=== PATIENT | female | born 1995 | race Caucasian/White ===

== ENCOUNTER 2023-08-21 09:50 | Outpatient (CLI) | payer MEDICAID | END 2023-08-21 23:59 | disposition home or self-care (01) | LOC: RAD 09:50 | PROVIDERS: ATTEND Student in an Organized Health Care Education/Training Program | DX: R10.84 Generalized abdominal pain (principal); R10.32 Left lower quadrant pain | CPT/HCPCS: 76700; 76830; 76856; 93976 ==